=== PATIENT | female | born 1990 | race Caucasian/White ===

== ENCOUNTER 2017-08-22 13:37 | Inpatient (IN) | payer OTHER ==
[~2017-08-22] VITALS: Ht 165.1 cm; Wt 55.3 kg
[2017-08-23] MEDS ORDERED: INTEGRA PLUS C1 EACH PO (10:09)
== END 2017-08-23 17:37 | disposition home or self-care (01) | DRG 812 ==
LOC: ER 13:37 → MEDJ 18:13
PROC: 30233N1 Transfusion of Nonautologous Red Blood Cells into Peripheral Vein, Percutaneous Approach (ICD-10-PCS; principal; 2017-08-23)
DX: D50.0 Iron deficiency anemia secondary to blood loss (chronic) (principal); N93.8 Other specified abnormal uterine and vaginal bleeding

== ENCOUNTER 2017-10-16 22:45 | Emergency (ER) | payer OTHER ==
[~2017-10-16] VITALS: Ht 167.6 cm; Wt 56.7 kg
[~2017-10-16 22:45] MED LIST: INTEGRA PLUS C1 EACH PO
[2017-10-17] MEDS ORDERED: ZANTAC300 MG PO (02:32)
[2017-10-17] MEDS ORDERED: ZOFRAN4 MG PO (02:32)
[2017-10-17] MEDS ORDERED: DICY20TA PO (02:32)
== END 2017-10-17 02:52 | disposition home or self-care (01) ==
LOC: ER 22:45
DX: K52.9 Noninfective gastroenteritis and colitis, unspecified (principal)

== ENCOUNTER 2017-11-21 21:54 | Emergency (ER) | payer OTHER ==
[~2017-11-21] VITALS: Ht 165.1 cm; Wt 55.3 kg
[~2017-11-21 21:54] MED LIST changes: +DICY20TA PO; +ZANTAC300 MG PO; +ZOFRAN4 MG PO
[2017-11-22] MEDS ORDERED: MUCINEX1200 MG PO (02:45)
== END 2017-11-22 02:54 | disposition home or self-care (01) ==
LOC: ER 21:54
DX: B34.9 Viral infection, unspecified (principal)

== ENCOUNTER 2018-02-28 17:52 | Emergency (ER) | payer OTHER ==
[~2018-02-28] VITALS: Ht 167.6 cm; Wt 52.2 kg
[~2018-02-28 17:52] MED LIST changes: +MUCINEX1200 MG PO
== END 2018-02-28 22:20 | disposition home or self-care (01) ==
LOC: ER 17:52
DX: K59.09 Other constipation (principal); K64.8 Other hemorrhoids

== ENCOUNTER 2018-06-20 16:39 | Emergency (ER) | payer OTHER ==
[~2018-06-20] VITALS: Ht 167.6 cm; Wt 49.9 kg
== END 2018-06-20 23:52 | disposition home or self-care (01) ==
LOC: ER 16:39
DX: K29.70 Gastritis, unspecified, without bleeding (principal)

== ENCOUNTER 2018-11-15 12:44 | Emergency (ER) | payer OTHER ==
[~2018-11-15] VITALS: Ht 165.1 cm; Wt 54.4 kg
== END 2018-11-15 19:11 | disposition home or self-care (01) ==
LOC: ER 12:44
DX: K52.9 Noninfective gastroenteritis and colitis, unspecified (principal)

== ENCOUNTER 2020-08-03 20:35 | Emergency (ER) | payer OTHER ==
[~2020-08-03] VITALS: Ht 167.6 cm; Wt 77.1 kg
== END 2020-08-03 21:36 | disposition home or self-care (01) ==
LOC: ER 20:35
DX: O26.893 Other specified pregnancy related conditions, third trimester (principal); S01.552A Open bite of oral cavity, initial encounter; W54.0XXA Bitten by dog, initial encounter; Y93.89 Activity, other specified; Y92.89 Other specified places as the place of occurrence of the external cause; Y99.8 Other external cause status

== ENCOUNTER 2020-08-04 13:00 | Inpatient (IN) | payer OTHER ==
[~2020-08-04] VITALS: Ht 167.6 cm; Wt 78.0 kg
[2020-08-13] MEDS ORDERED: PRENATAL TABLE1 EAC1 PO (02:54)
== END 2020-08-15 14:46 | disposition home or self-care (01) | DRG 807 ==
LOC: LDR 08-13 02:47 → SURG-SUITE 08-13 15:54 → OB/GYN 08-19 13:00
PROVIDERS: ADMIT Specialist; ATTEND Specialist
PROC: 10E0XZZ Delivery of Products of Conception, External Approach (ICD-10-PCS; principal; 2020-08-13)
PROC: 0HQ9XZZ Repair Perineum Skin, External Approach (ICD-10-PCS; 2020-08-13)
PROC: 0UQMXZZ Repair Vulva, External Approach (ICD-10-PCS; 2020-08-13)
PROC: 10907ZC Drainage of Amniotic Fluid, Therapeutic from Products of Conception, Via Natural or Artificial Opening (ICD-10-PCS; 2020-08-13)
PROC: 4A1HXFZ Monitoring of Products of Conception, Cardiac Rhythm, External Approach (ICD-10-PCS; 2020-08-13)
DX: O70.0 First degree perineal laceration during delivery (principal); Z37.0 Single live birth; O71.82 Other specified trauma to perineum and vulva; Z3A.39 39 weeks gestation of pregnancy

== ENCOUNTER 2024-01-13 17:20 | Emergency (ER) | payer OTHER ==
[~2024-01-13] VITALS: Ht 167.6 cm; Wt 68.0 kg
[~2024-01-13 17:20] MED LIST changes: +PRENATAL TABLE1 EAC1 PO
[2024-01-13] MEDS ORDERED: IBUprofen 100 MG/5 ML-120ML ML PO STA (18:10)
[2024-01-13] MEDS ORDERED: IBUprofen 20 MG/ML BLIST.PACK (5ML) PO ONE (18:33)
== END 2024-01-13 19:37 | disposition home or self-care (01) ==
LOC: ER 17:21
DX: M54.2 Cervicalgia (principal); V43.62XA Car passenger injured in collision with other type car in traffic accident, initial encounter; Y93.89 Activity, other specified; Y92.413 State road as the place of occurrence of the external cause

== ENCOUNTER 2024-07-25 11:32 | Emergency (ER) | payer OTHER ==
[~2024-07-25] VITALS: Ht 167.6 cm; Wt 72.6 kg
[2024-07-25] MEDS ORDERED: PNV-DHA SOFTGE1 EACH PO (12:31)
[2024-07-25] MEDS ORDERED: 0.9 % SODIUM CHLORIDE 1,000 ML IV STA (12:45)
[2024-07-25 13:42] LABS: HEMATOCRIT 28.9 % (36.0-45.00); MEAN CELL VOLUME 73.6 fL (80.00-100.00); MEAN CORPUSCULAR HGB CONC 32.3 g/dl (32.0-36.0); PLATELET COUNT 120 K/uL (150-450); RED BLOOD COUNT 3.93 M/uL (4.00-6.00)
[2024-07-25 13:43] LABS: HEMOGLOBIN 9.3 g/dL (12.0-15.00); MEAN CORPUSCULAR HEMOGLOBIN 23.6 pg (27.00-32.0)
[2024-07-25 15:14] LABS: URINE APPEARANCE Cloudy; URINE BILIRRUBIN Negative (NEGATIVE); URINE BLOOD Negative; URINE COLOR Yellow; URINE GLUCOSE Negative (NEGATIVE); URINE LEUKOCYTE Trace; URINE NITRATE Negative; URINE PROTEIN Negative (NEGATIVE)
[2024-07-25 15:31] LABS: URINE BACTERIA 3095.4 uL (0.0-1933); URINE EPITHELIAL CELLS 93.2 uL (0.0-38.8); URINE RBC 8.8 uL (0.0-20.8); URINE WBC 18.5 uL (0.0-23.2)
[2024-07-25 15:36] LABS: URINE CAST 0.14 uL (0.0-1.40); URINE KETONE >=160 (NEGATIVE)
== END 2024-07-25 16:17 | disposition home or self-care (01) ==
LOC: ER 11:35
PROVIDERS: Emergency Medicine
DX: O98.512 Other viral diseases complicating pregnancy, second trimester (principal); Z3A.21 21 weeks gestation of pregnancy; B34.9 Viral infection, unspecified

== ENCOUNTER 2024-11-22 13:45 | Inpatient (IN) | payer OTHER ==
[~2024-11-22] VITALS: Ht 167.6 cm; Wt 84.4 kg
[~2024-11-22 13:45] MED LIST changes: +PNV-DHA SOFTGE1 EACH PO
[2024-11-28] VITALS (7 sets, daily range): BP systolic 103–132; BP diastolic 67–78
[2024-11-28] MEDS ORDERED: RINGERS SOLUTION,LACTATED 1,000 ML IV SCH (06:15)
[2024-11-28] MEDS ORDERED: IRON236 MG PO (06:23)
[2024-11-28] MEDS ORDERED: OXYTOCIN 500 ML IV SCH (06:30)
[2024-11-28 06:34] LABS: URINE APPEARANCE Clear; URINE BILIRRUBIN Negative (NEGATIVE); URINE BLOOD Moderate; URINE COLOR Yellow; URINE GLUCOSE Negative (NEGATIVE); URINE KETONE Negative (NEGATIVE); URINE LEUKOCYTE Trace; URINE NITRATE Negative; URINE PROTEIN Trace (NEGATIVE)
[2024-11-28 06:37] LABS: URINE BACTERIA 947.3 uL (0.0-1933); URINE EPITHELIAL CELLS 35.6 uL (0.0-38.8); URINE RBC 6.9 uL (0.0-20.8); URINE WBC 38.1 uL (0.0-23.2)
[2024-11-28 06:53] LABS: INR 0.94; PARTIAL THROMBOPLASTIN TIME 24.8 SECONDS (22.0-34.0); PROTHROMBIN TIME 10.3 SECONDS (9.0-11.5)
[2024-11-28 07:02] LABS: BASO % 0.3 % (0.1-1.2); EOS # 0.04 (0.04-0.54); EOS % 0.5 % (0.7-7.0); HEMATOCRIT 32.6 % (34.1-44.9); HEMOGLOBIN 10.1 g/dL (11.2-15.7); LYMPH # 0.93 (1.18-3.74); LYMPH % 12.7 % (19.3-53.1); MEAN CORPUSCULAR HEMOGLOBIN 23.4 pg (25.6-32.2); MONO # 0.51 (0.24-0.82); NEUT % 79.2 % (34.0-71.1); PLATELET COUNT 158 K/uL (163-369); RED BLOOD COUNT 4.31 M/uL (3.93-5.22); RED CELL DISTRIBUTION WIDTH 22.5 % (11.6-14.4)
[2024-11-28 07:37] LABS: ALBUMIN 2.6 gm/dL (3.4-5.0); BILIRUBIN TOTAL 0.37 mg/dL (0.3-1.2); CALCIUM 8.9 mg/dL (8.5-10.1); CREATININE SERUM 0.53 mg/dL (0.55-1.02); GFR 132.85; GLOBULINA 3.7 G/DL (2.4-3.5); POTASSIUM 4.39 mEq/L (3.5-5.1); TOTAL PROTEIN 6.3 gm/dL (6.4-8.2)
[2024-11-28 07:42] LABS: URINE CAST 0.14 uL (0.0-1.40)
[2024-11-28] MEDS ORDERED: ERYTHROMYCIN BASE OPHT 1GM EACH TUBE OP ONE ×2 (09:16→10:45)
[2024-11-28] MEDS ORDERED: CHLORHEXIDINE GLUCONATE 120 ML BOTTLE TOP ONE ×2 (09:17→10:45)
[2024-11-28] MEDS ORDERED: OXYTOCIN 20 UNITS/1000ML RL PIGGYBAG IV ONE (09:17)
[2024-11-28] MEDS ORDERED: LIDOCAINE HCL 1% 10ML VIAL ONE (09:17)
[2024-11-28] MEDS ORDERED: LIDOCAINE HCL 1% 10ML VIAL IJ ONE (10:45)
[2024-11-28] MEDS ORDERED: ACETAMINOPHEN 500 MG GEL..CAP PO PRN (10:45)
[2024-11-28] MEDS ORDERED: IBUprofen 800 MG TABLET PO PRN (10:45)
[2024-11-28] MEDS ORDERED: OXYTOCIN 1,000 ML IV SCH (11:15)
[2024-11-28] MEDS ORDERED: BENZOCAINE/MENTHOL 90 ML BOTTLE TOP SCH (13:00)
[2024-11-28] MEDS ORDERED: HYDROCORTISONE 2.5% 30 GM TUBE RECTAL SCH (13:00)
[2024-11-29 01:05] VITALS: BP 106/63
[2024-11-29 01:37] LABS: BASO % 0.3 % (0.1-1.2); EOS # 0.06 (0.04-0.54); EOS % 0.6 % (0.7-7.0); HEMATOCRIT 29.7 % (34.1-44.9); HEMOGLOBIN 9.4 g/dL (11.2-15.7); LYMPH # 1.16 (1.18-3.74); LYMPH % 12.3 % (19.3-53.1); MEAN CORPUSCULAR HEMOGLOBIN 23.9 pg (25.6-32.2); MONO # 0.64 (0.24-0.82); MONO % 6.8 % (4.7-12.5); NEUT # 7.53 (1.56-6.13); NEUT % 79.6 % (34.0-71.1); PLATELET COUNT 139 K/uL (163-369); RED BLOOD COUNT 3.94 M/uL (3.93-5.22); RED CELL DISTRIBUTION WIDTH 22.4 % (11.6-14.4)
[2024-11-29 09:56] VITALS: BP 111/75
[2024-11-29 16:28] VITALS: BP 120/78
[2024-11-30 01:31] VITALS: BP 102/62
[2024-11-30 08:00] VITALS: BP 112/65
== END 2024-11-30 15:14 | disposition home or self-care (01) | DRG 807 ==
LOC: LDR 11-28 05:28 → OB/GYN 11-28 10:21
PROVIDERS: ADMIT Specialist; ATTEND Specialist
PROC: 10E0XZZ Delivery of Products of Conception, External Approach (ICD-10-PCS; principal; 2024-11-28)
PROC: 4A1HXCZ Monitoring of Products of Conception, Cardiac Rate, External Approach (ICD-10-PCS; 2024-11-28)
DX: O69.81X0 Labor and delivery complicated by cord around neck, without compression, not applicable or unspecified (principal); Z37.0 Single live birth; Z3A.39 39 weeks gestation of pregnancy